=== PATIENT | male | born 1990 | race Caucasian/White ===

== ENCOUNTER 2020-03-17 07:02 | Day surgery (SDC) | payer OTHER ==
[~2020-03-17] VITALS: Ht 177.8 cm; Wt 81.8 kg
[2020-03-17 07:38] VITALS: BP 139/81
[2020-03-17] MEDS ORDERED: NO MEDS PER PT (07:38)
[2020-03-17] MEDS ORDERED: LACTATED RINGERS 1,000 ML IV SCH (07:43)
[2020-03-17] MEDS ORDERED: CHLORHEXIDINE 15 ML UDC ONE (07:47)
[2020-03-17] MEDS ORDERED: CHLORHEXIDINE 15 ML UDC MM ONE (08:00)
[2020-03-17] MEDS ORDERED: MIDAZOLAM 1 MG/ML, 2ML ONE (08:43)
[2020-03-17] MEDS ORDERED: FENTANYL PF 100 MCG/2ML ONE ×2 (08:43→10:46)
[2020-03-17] MEDS ORDERED: KETOROLAC 30 MG/1 ML ONE (10:03)
[2020-03-17] MEDS ORDERED: NEOSTIGMINE 1 MG/ML, 10ML ONE (10:03)
[2020-03-17] MEDS ORDERED: GLYCOPYRROLATE 0.2MG/1ML, 5ML ONE (10:03)
[2020-03-17] MEDS ORDERED: DEXAMETHASONE 4 MG/ML, 1ML ONE (10:03)
[2020-03-17] MEDS ORDERED: ROCURONIUM 10MG/ML,5ML ONE (10:03)
[2020-03-17] MEDS ORDERED: SUCCINYLCHOLINE 20 MG/ML, 10ML ONE (10:03)
[2020-03-17] MEDS ORDERED: CEFAZOLIN 1,000 MG ONE (10:03)
[2020-03-17] MEDS ORDERED: PROPOFOL 10 MG/ML, 20ML ONE (10:03)
[2020-03-17] MEDS ORDERED: SUGAMMADEX 200 MG/2 ML IVPush ONE (10:03)
[2020-03-17] MEDS ORDERED: ONDANSETRON 2MG/ML, 2ML ONE (10:03)
[2020-03-17] MEDS ORDERED: MEPERIDINE/PF 25MG/0.5ML IVPush PRN (10:30)
[2020-03-17] MEDS ORDERED: hydrALAzine 20 MG/ML, 1ML IV PRN (10:30)
[2020-03-17] MEDS ORDERED: HYDROmorphone 2 MG/ML, 1ML IVPush PRN (10:30)
[2020-03-17] MEDS ORDERED: DIAZEPAM 5 MG/ML, 2ML IVPush PRN (10:30)
[2020-03-17] MEDS ORDERED: ACETAMINOPHEN 325 MG TABLET PO PRN (10:30)
[2020-03-17] MEDS ORDERED: PROMETHAZINE 25 MG/ML, 1ML IV PRN (10:30)
[2020-03-17] MEDS ORDERED: ALBUTEROL SULFATE 2.5 MG/3 ML NPPB PRN (10:30)
[2020-03-17] MEDS ORDERED: LABETALOL 5MG/ML, 20ML IV PRN (10:30)
[2020-03-17] MEDS ORDERED: FENTANYL PF 100 MCG/2ML IV PRN (10:30)
[2020-03-17] MEDS ORDERED: KETOROLAC 30 MG/1 ML IV PRN (10:30)
[2020-03-17] MEDS ORDERED: OXYcodone 5 MG/5 ML ORAL.SOL UDC PO PRN (10:30)
[2020-03-17] MEDS ORDERED: ACETAMINOPHEN 650 MG/20.3 ML UDC ONE (10:46)
[2020-03-17] MEDS ORDERED: OXYcodone 5 MG/5 ML ORAL.SOL UDC ONE (10:46)
== END 2020-03-17 12:15 | disposition home or self-care (01) ==
LOC: OUT 07:02
PROVIDERS: ATTEND Orthopaedic Surgery
DX: M66.372 Spontaneous rupture of flexor tendons, left ankle and foot (principal); Z11.59 Encounter for screening for other viral diseases; M76.61 Achilles tendinitis, right leg; Z88.0 Allergy status to penicillin; Z72.89 Other problems related to lifestyle; Z79.899 Other long term (current) drug therapy
CPT/HCPCS: 27650; 64445; 87635; J0690; J1100; J1885; J2250; J2405; J2704; J3010; J7120; J2710; J0330